=== PATIENT | female | born 1940 | race Caucasian/White ===

== ENCOUNTER 2016-06-08 11:27 | Emergency (ER) | payer MEDICARE, OTHER ==
[~2016-06-08] VITALS: Ht 152.4 cm; Wt 65.0 kg
[~2016-06-08 11:27] MED LIST: SULF1TAB47 PO; VYTO10TA29 PO
[2016-06-08 11:32] VITALS: BP 141/77; PULSE 73; RESP 17; TEMP 98.3; O2SAT 97
[2016-06-08] MEDS ORDERED: HYDR12.57 PO (11:50)
[2016-06-08] MEDS ORDERED: ATOR10TA15 PO (11:50)
[2016-06-08] MEDS ORDERED: VYTO10TA27 PO (11:50)
--- NOTE | 2016-06-08 12:27 | PD ---
HPI Chief Complaint: Injury Time Seen by Provider: 12:21 Travel History International Travel<30 days: Yes Contact w/Intl Traveler<30days: Yes Name of Country Traveled to: [place] Traveled to known affect area: No History of Present Illness HPI 76-year-old female with a history of hypertension, hyperlipidemia presents to the emergency department for evaluation of right hand pain. The patient states that 2 weeks ago while she was on vacation in [place] she was using a drying rack to dry her close and the rack fell onto her dorsal right hand. States that it this weighed only a few pounds and she did not have any significant swelling or pain after this occurred. States that since then she did have some minor pain in the right hand while carrying bags and luggage on her trip. States that today while she was playing tennis she noticed she had pain in her dorsal right hand every time she gripped the racket and hit the ball. States that she became concerned and wanted to come in to have this evaluated. States she has had pain in her right hand at this location in the past and was told she had tendinitis and required a cortisone injection which relieved her symptoms. States that today she took Aleve and has applied ice. Symptoms are mild in severity. Denies any numbness or tingling. 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 No other complaints. PFSH Past Medical History Cardiovascular Problems: Yes (HTN, CHOLESTEROL) High Cholesterol: Yes Diminished Hearing: No Hypertension: Yes Tetanus Vaccination: < 5 Years ?: Not LMP: MENOPAUSAL Menopausal: Yes Past Surgical History Cholecystectomy: Yes Social History Alcohol Use: Yes (SOCIALLY) Tobacco Use: No (QUIT 1998) Substance Use: No Allergies-Medications (Allergen,Severity, Reaction): Coded Allergies: Codeine (Verified Allergy, Severe, Shortness of Breath, 06/08/16) Reported Meds & Prescriptions Reported Meds & Active Scripts Active Reported Hydrochlorothiazide 12.5 Mg Cap 12.5 Mg PO DAILY Atorvastatin (Atorvastatin Calcium) 10 Mg Tab 10 Mg PO HS Vytorin (Ezetimibe-Simvastatin) 10-10 Mg Tab 1 Tab PO HS Review of Systems Except as stated in HPI: all other systems reviewed are Neg Physical Exam Narrative GENERAL: Well-nourished and well-developed pleasant female patient in no acute distress who is nontoxic appearing. SKIN: Warm and dry. HEAD: Normocephalic and atraumatic. EYES: No injection, drainage, or hyphema noted. PERRLA. EOMI. ENT: No nasal drainage noted. Oropharynx is clear. NECK: Supple and the trachea is midline. CARDIOVASCULAR: Regular rate and rhythm. RESPIRATORY: Breath sounds are equal bilaterally with no accessory muscle use, wheezing, rhonchi, or crackles. EXTREMITY: Right hand with slight tenderness over dorsal extensor tendon from wrist to hand. She has an almost completely healed abrasion to the dorsal right hand from the drying rack injury but has no pain underlying this area. Full range of motion in all joints. No joint swelling/injury. Lumbrical and interossei function intact. Normal opposition of thumb. Distal extremity neurovascularly intact with intact two point discrimination. NEUROLOGICAL: Awake, alert, and oriented. Normal speech and gait. Cranial nerves are grossly intact. Data Data Last Documented VS Vital Signs Date Time Temp Pulse Resp B/P Pulse Ox O2 Delivery O2 Flow Rate FiO2 06/08/16 11:32 98.3 73 17 141/77 97 MDM Medical Decision Making Medical Screen Exam Complete: Yes Emergency Medical Condition: Yes Differential Diagnosis Sprain versus contusion versus tendinitis versus fracture unlikely Narrative Course 76-year-old female presents to the emergency department for evaluation of right hand injury. Patient is afebrile, vital signs are stable. The patient had a drying rack weighing only a few lbs fall on her hand 2 weeks ago. She has also been aggravating her hand and wrist by doing alot of lifting and moving of luggage. She has a known history of tendonitis and injury to this right hand and wrist. She has no bony abnormality on examination, there is no swelling or physical deformity. I discussed with the patient that her symptoms are likely secondary to tendinitis versus sprain. I don't believe that she has a fracture. I did offer to do an x-ray however the patient agrees and elects not to have one performed at this time. She has several hand and wrist splints at home. She agrees to take NSAIDs as an outpatient and to follow-up with her PCP. Diagnosis Primary Impression: Sprain of right hand Qualified Code: S63.91XA - Sprain of right hand, initial encounter Referrals: Primary Care Physician Patient Instructions: General Instructions, Hand Sprain (ED) Additional Instructions: Rest. Apply ice for 20 minutes on, 20 minutes off. Take NSAIDS like Aleve or Ibuprofen. Follow-up with your Primary Care Physician or hand specialist if symptoms persist. Return to the ED for any acute worsening of symptoms. Med/Other Pt SpecificInfo: No Change to Meds Disposition: 01 DISCHARGE HOME Condition: Stable Nunu Stewart Jun 08, 2016 12:27
== END 2016-06-08 12:42 | disposition home or self-care (01) ==
LOC: PHEFT 11:27
DX: S63.91XA Sprain of unspecified part of right wrist and hand, initial encounter (principal); I10 Essential (primary) hypertension; E78.00 Pure hypercholesterolemia, unspecified; Z86.79 Personal history of other diseases of the circulatory system; W20.8XXA Other cause of strike by thrown, projected or falling object, initial encounter; X50.0XXA Overexertion from strenuous movement or load, initial encounter
CPT/HCPCS: 99283

== ENCOUNTER 2017-02-16 08:18 | Emergency (ER) | payer MEDICARE, OTHER ==
[~2017-02-16] VITALS: Ht 152.4 cm; Wt 70.4 kg
[~2017-02-16 08:18] MED LIST changes: +ATOR10TA15 PO; +HYDR12.57 PO; -SULF1TAB47 PO; +VYTO10TA27 PO; -VYTO10TA29 PO
[2017-02-16 08:19] VITALS: BP 145/67; PULSE 108; RESP 16; TEMP 101.1; O2SAT 96
--- NOTE | 2017-02-16 08:43 | PD ---
HPI Chief Complaint: Cold / Flu Symptoms Time Seen by Provider: 08:32 Travel History International Travel<30 days: No Contact w/Intl Traveler<30days: No Traveled to known affect area: No History of Present Illness HPI The patient is a 77-year-old female who presents to the emergency department for cough and cold symptoms that started yesterday morning. The patient states she awakened yesterday morning with a sore throat. The patient then developed a dry, heavy, productive cough producing thick white sputum. She also complains of fevers, chills, sweats, and bodyaches. The patient does have family members at home with similar symptoms to her diagnosed with influenza. The patient stopped smoking in the . She denies any shortness of breath, chest pain, nausea, vomiting, diarrhea, abdominal pain, or dysuria. The patient did receive an influenza vaccination this year. The patient did not take any medications for her fever this morning. The patient does have a history of hypertension, hyperlipidemia, and GERD. The patient's primary physician is Dr. Love. [facility] Past Medical History Cardiovascular Problems: Yes (HTN, CHOLESTEROL) High Cholesterol: Yes Diminished Hearing: No Hypertension: Yes ?: Not Menopausal: Yes Past Surgical History Cholecystectomy: Yes Social History Alcohol Use: Yes (SOCIALLY) Tobacco Use: No (QUIT 1998) Substance Use: No Allergies-Medications (Allergen,Severity, Reaction): Coded Allergies: codeine (Unverified Allergy, Severe, Shortness of Breath, 02/16/17) Reported Meds & Prescriptions Reported Meds & Active Scripts Active Reported Ranitidine (Ranitidine HCl) 150 Mg Tab 150 Mg PO DAILY Losartan (Losartan Potassium) 25 Mg Tab 25 Mg PO DAILY Hydrochlorothiazide 12.5 Mg Cap 12.5 Mg PO DAILY Atorvastatin (Atorvastatin Calcium) 10 Mg Tab 10 Mg PO HS Review of Systems Except as stated in HPI: all other systems reviewed are Neg General / Constitutional: Positive: Fever, Chills HENT: Positive: Sore Throat, Congestion Cardiovascular: No: Chest Pain or Discomfort Respiratory: Positive: Cough, No: Shortness of Breath, Wheezing Gastrointestinal: No: Nausea, Vomiting, Diarrhea, Abdominal Pain Genitourinary: No: Dysuria Musculoskeletal: Positive: Myalgias, Arthralgias Skin: No Rash Physical Exam Narrative GENERAL: Awake, alert, pleasant 77-year-old female who appears her stated age and is in no acute respiratory distress. SKIN: Focused skin assessment warm/dry. HEAD: Atraumatic. Normocephalic. EYES: Pupils equal and round. No scleral icterus. No injection or drainage. ENT: No nasal bleeding or discharge. Oropharynx reveals cobblestoning but no exudate. The patient removed her hearing aids, TMs are translucent and EACs are clear. NECK: Trachea midline. No JVD. No significant anterior cervical lymphadenopathy noted. CARDIOVASCULAR: Regular, tachycardic with a heart rate of 100. RESPIRATORY: No accessory muscle use. Clear to auscultation. Breath sounds equal bilaterally. Few scattered wheezes but no rhonchi noted. GASTROINTESTINAL: Abdomen soft, non-tender, nondistended. No guarding or rigidity. Back: No CVA tenderness. MUSCULOSKELETAL: No obvious deformities. No clubbing. No cyanosis. No edema. NEUROLOGICAL: Awake and alert. No obvious cranial nerve deficits. Motor grossly within normal limits. Normal speech. PSYCHIATRIC: Appropriate mood and affect; insight and judgment normal. Data Data Last Documented VS Vital Signs Date Time Temp Pulse Resp B/P (MAP) Pulse Ox O2 Delivery O2 Flow Rate FiO2 02/16/17 08:47 101.0 104 16 144/66 (92) 95 Room Air Orders Orders Chest, Single Ap (02/16/17 ) Influenzae A/B Antigen (02/16/17 08:38) Acetaminophen (Tylenol) (02/16/17 08:45) Albuterol-Ipratropium Neb (Duoneb Neb) (02/16/17 09:30) Prednisone (Deltasone) (02/16/17 09:30) MDM Medical Decision Making Medical Screen Exam Complete: Yes Emergency Medical Condition: Yes Medical Record Reviewed: Yes Interpretation(s) Date/Time Source Procedure Growth Status 02/16/17 08:42 Nasal Aspirate Influenza Types A,B Antigen (JASMIN) - Final NEGATIVE FOR FLU A AND B ANTIGEN.... Complete Chest x-ray reveals no acute cardiac pulmonary process. Differential Diagnosis Differential diagnosis includes influenza, viral syndrome, URI, bronchitis, pneumonia. Narrative Course Influenza screen was sent to lab. Chest x-ray was obtained. The patient was administered Tylenol 650 mg orally for pain. Influenza screen was negative. Chest x-ray reveals no acute cardiopulmonary process. Patient's most likely etiology is viral syndrome with secondary bronchitis. I had a discussion with the patient regarding the most likely etiology being viral syndrome with secondary bronchitis and whether steroids/antibiotic/inhalers were indicated. 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 She is advised to follow-up with her primary physician. Return if symptoms worsen or progress. Diagnosis Primary Impression: Viral syndrome Additional Impression: Bronchitis Patient Instructions: General Instructions Additional Instructions: Please provide the patient a copy of her x-ray results and flu results at discharge. Medications as directed. Follow-up with her primary physician. Return if symptoms worsen or progress. Med/Other Pt SpecificInfo: Prescription(s) given Scripts Albuterol Neb (Albuterol Neb) 2.5 Mg/3 Ml Neb 2.5 MG NEB Q4HR NEB Y for SHORTNESS OF BREATH, #60 NEBULE 0 Refills Prov: Jonathan Pierce MD 02/16/17 Azithromycin (Zithromax Z-Keshawn) 250 Mg Dspk 250 MG PO DIRECTED for Infection, #1 DSPK 0 Refills 500 MG (2 tabs) day 1, then 1 tab days 2-5. Prov: Jonathan Pierce MD 02/16/17 Prednisone (Deltasone) 20 Mg Tab 40 MG PO DAILY for 4 Days, #8 TAB 0 Refills Prov: Jonathan Pierce MD 02/16/17 Disposition: 01 DISCHARGE HOME Condition: Stable Jonathan Pierce MD Feb 16, 2017 08:43
[2017-02-16] MEDS ORDERED: ACETAMINOPHEN 325 MG TAB PO ONE (08:45)
[2017-02-16 08:47] VITALS: BP 144/66; PULSE 104; RESP 16; TEMP 101; O2SAT 95
[2017-02-16] MEDS ORDERED: RANI150T PO (08:52)
[2017-02-16] MEDS ORDERED: LOSA25TA PO (08:52)
--- NOTE | 2017-02-16 09:18 | RADRPT ---
EXAM DATE/TIME: 02/16/2017 08:49 [facility] COMPARISON: No previous studies available for comparison. INDICATIONS : Fever, cough, congestion, aches. MEDICAL HISTORY : Hypertension. Hypercholesterolemia. SURGICAL HISTORY : Cholecystectomy. ENCOUNTER: Initial ACUITY: 2 days PAIN SCORE: 5/10 LOCATION: chest FINDINGS: A single view of the chest demonstrates the lungs to be symmetrically aerated without evidence of mas s, infiltrate or effusion. The cardiomediastinal contours are unremarkable. Osseous structures are intact with a levoscoliosis of the thoracolumbar spine and associated mild changes. CONCLUSION: No acute cardiac pulmonary process. Niles Randall MD on February 16, 2017 at 9:15 Board Certified Radiologist. This report was verified electronically.
[2017-02-16] MEDS ORDERED: ALBU0.08 NEB (09:26)
[2017-02-16] MEDS ORDERED: ZITHTAB PO (09:26)
[2017-02-16] MEDS ORDERED: PRED-503 PO (09:26)
[2017-02-16] MEDS ORDERED: RESP: ALBUTEROL 2.5 MG/IPRATROPIUM 0.5 MG NEB (SCH) NEB ONE (09:30)
[2017-02-16] MEDS ORDERED: predniSONE 20 MG TAB PO ONE (09:30)
[2017-02-16 10:11] VITALS: TEMP 98.8
== END 2017-02-16 10:13 | disposition home or self-care (01) ==
LOC: PHED 08:18
DX: B34.9 Viral infection, unspecified (principal); J40 Bronchitis, not specified as acute or chronic; E78.5 Hyperlipidemia, unspecified; K21.9 Gastro-esophageal reflux disease without esophagitis; I10 Essential (primary) hypertension; R00.0 Tachycardia, unspecified
CPT/HCPCS: 71010; 87804; 94664; 99284; J7512